=== PATIENT | male | born 1945 | race Caucasian/White ===

== ENCOUNTER → 2023-05-31 | Outpatient (CLI) | payer OTHER | END | disposition home or self-care (01) | LOC: RAH 12:27 | PROVIDERS: ATTEND Family Medicine | DX: I67.2 Cerebral atherosclerosis (principal); R26.9 Unspecified abnormalities of gait and mobility; G31.9 Degenerative disease of nervous system, unspecified | CPT/HCPCS: 70544; 70547; 70551 ==

== ENCOUNTER → 2024-02-06 | Outpatient (CLI) | payer OTHER | END | disposition home or self-care (01) | LOC: RAH 13:18 | PROVIDERS: ATTEND Family Medicine | DX: I35.1 Nonrheumatic aortic (valve) insufficiency (principal); G45.3 Amaurosis fugax | CPT/HCPCS: 93306 ==